=== PATIENT | male | born 1970 | race Hispanic/Latino ===

== ENCOUNTER 2023-12-04 04:26 | Emergency (ER) | payer SELFPAY ==
[~2023-12-04] VITALS: Ht 157.5 cm; Wt 46.3 kg
[2023-12-04] VITALS (22 sets, daily range): BP systolic 117–151; BP diastolic 79–117
[~2023-12-04 04:26] MED LIST: LEVAQUIN750 MG PO; NO HOME MEDS
[2023-12-04] MEDS ORDERED: MAGNESIUM SULFATE 50% 1 GM/2 ML IV ONE (04:50)
[2023-12-04] MEDS ORDERED: methylPREDNISolone SODIUM SUCC 125 MG/2 ML SDV IV ONE (04:50)
[2023-12-04] MEDS ORDERED: IPRATROPIUM-Albuterol 0.5MG-2.5MG/3 ML NEB ONE ×3 (04:50)
[2023-12-04] MEDS ORDERED: SODIUM CHLORIDE 0.9% 1,000 ML BAG IV ONE (05:05)
[2023-12-04] MEDS ORDERED: ISONIAZID 300 MG TAB PO SCH (05:12)
[2023-12-04 05:13] LABS: BASO% 0.1 % (0-3); HEMATOCRIT 42.3 % (39.0-50.0); HEMOGLOBIN 12.3 g/dl (14.0-18.0); IMMATURE GRANULOCYTES 1.1 % (0.0-5.0); LYMPH% 20.9 % (15-41); MEAN CORPUSCULAR HGB CONC 29.1 g/dL CAL (32.0-36.0); MONO% 12.7 % (2-13); NEUT# 8.85 thou/uL (1.82-7.42); NEUT% 65.2 % (42-76); RED BLOOD COUNT 4.4 mill/uL (4.70-6.10); RED CELL DISTRI WIDTH 13.5 % (11.5-15.5)
[2023-12-04] MEDS ORDERED: PYRAZINAMIDE 500 MG TAB PO ONE (05:15)
[2023-12-04 05:16] LABS: MEAN CELL VOLUME 96.1 fL CALC (80.0-100.0)
[2023-12-04] MEDS ORDERED: VANCOMYCIN HCL 1 GM in SODIUM CHLORIDE 0.9% 250 ML IV STA (05:19)
[2023-12-04] MEDS ORDERED: PIPERACILLIN Sodium-Tazobactam 3.375 GM in SODIUM CHLORIDE 0.9% 100 ML IV STA (05:19)
[2023-12-04] MEDS ORDERED: ETHAMBUTOL HCL 400 MG TAB PO ONE (05:20)
[2023-12-04] MEDS ORDERED: ETOMIDATE 20 MG/10 ML SDV IV ONE (05:30)
[2023-12-04] MEDS ORDERED: SUCCINYLCHOLINE CHLORIDE 20 MG/ML 10ML VIAL IV ONE (05:30)
[2023-12-04] MEDS ORDERED: PROPOFOL 10 MG/ML 100ML VIAL IV SCH (06:25)
[2023-12-04] MEDS ORDERED: PROPOFOL 100 ML IV PRN (06:40)
[2023-12-04 08:00] LABS: ALBUMIN 3.3 g/dL (3.2-5.0); ALKALINE PHOSPHATASE 195 u/l (38-126); ANION GAP 10 (6-22 (CALC)); BILIRUBIN, TOTAL 0.7 mg/dL (0.2-1.3); BUN 25 mg/dL (9-20); BUN/CREATININE RATIO 36 (12-20 (CALC)); CARBON DIOXIDE 38 mmol/l (22-30); CHLORIDE 93 mmol/l (95-108); CREATININE 0.7 mg/dL (0.7-1.3); GFR FOR AFR.AMER. > 60 ML/MIN (>=60 (CALC)); GFR OTHER RACES > 60 ML/MIN (>=60 (CALC)); POTASSIUM 5.1 mmol/l (3.5-5.1); SGOT/AST 81 u/l (17-59); SODIUM 136 mmol/l (137-146); TOTAL PROTEIN 9.8 g/dL (6.3-8.2)
[2023-12-04] MEDS ORDERED: rifAMPin 300 MG CAP PO SCH (08:00)
== END 2023-12-04 09:23 | disposition short-term general hospital (02) | DRG 867 ==
LOC: ED 04:26
PROVIDERS: Family Medicine
PROC: 0BH17EZ Insertion of Endotracheal Airway into Trachea, Via Natural or Artificial Opening (ICD-10-PCS; principal; 2023-12-04)
PROC: 5A1935Z Respiratory Ventilation, Less than 24 Consecutive Hours (ICD-10-PCS; 2023-12-04)
DX: A19.9 Miliary tuberculosis, unspecified (principal); J96.01 Acute respiratory failure with hypoxia; J96.02 Acute respiratory failure with hypercapnia; Z21 Asymptomatic human immunodeficiency virus [HIV] infection status; Z20.822 Contact with and (suspected) exposure to COVID-19